=== PATIENT | female | born 1995 | race African-American/Black ===

== ENCOUNTER → 2016-12-04 | Outpatient (CLI) | payer MEDICAID ==
[~2016-12-04] MED LIST: ADDERALL 20 MG20 MG PO; CLARITIN10 MG PO; FLONASE ALLERG9.9 ML NAS; MACROBID100 M1 PO; NAPROSYN500 MG PO; PRENATAL1 TA3 PO
== END ==
LOC: US 12:48
DX: Z34.82 Encounter for supervision of other normal pregnancy, second trimester (principal)